=== PATIENT | male | born 1985 | race Two or more races ===

== ENCOUNTER 2025-04-16 23:23 | Emergency (ER) | payer OTHER ==
[~2025-04-16] VITALS: Ht 170.2 cm; Wt 72.6 kg
[2025-04-16] MEDS ORDERED: LIDOCAINE HCL 2% 20 ML VIAL ONE (23:51)
[2025-04-17] MEDS: LIDOCAINE HCL 2% 20 ML VIAL IJ ONE
[2025-04-17] MEDS ORDERED: NITR30OI6 RC (00:15)
[2025-04-17] MEDS ORDERED: LIDO15CR6 TP (00:15)
[2025-04-17 00:42] VITALS: BP 126/69; TEMP 98; O2SAT 97
== END 2025-04-17 00:43 | disposition home or self-care (01) ==
LOC: ER 23:40
DX: K64.4 Residual hemorrhoidal skin tags (principal); R10.2 Pelvic and perineal pain; Z87.19 Personal history of other diseases of the digestive system
CPT/HCPCS: 64430; 99284; J3490; A4606; A4663